=== PATIENT | female | born 2000 | race Two or more races ===

== ENCOUNTER → 2025-09-09 | Outpatient (CLI) | payer MEDICAID ==
[2025-09-09 17:26] LABS: PLATELET COUNT, AUTOMATED 262 10^3/uL (150-450)
[2025-09-09 17:56] LABS: HIV 1&2 SCREEN NEGATIVE (NEGATIVE)
[2025-09-09 18:04] LABS: HEPATITIS C VIRUS ABY INDEX < 0.02 INDEX (<0.8)
[2025-09-09 18:32] LABS: Trichomonas vaginalis (AMP) NOT DETECTED (NEGATIVE)
[2025-09-09 18:55] LABS: GC DNA AMPLIFICATION NEGATIVE (NEGATIVE)
== END ==
LOC: M PLALAB 14:01 → EEVIPCON 14:01
PROVIDERS: ATTEND Advanced Practice Midwife
DX: Z34.01 Encounter for supervision of normal first pregnancy, first trimester (principal)

== ENCOUNTER 2025-10-16 05:13 | Emergency (ER) | payer MEDICAID, OTHER ==
[~2025-10-16] VITALS: Ht 149.9 cm; Wt 58.2 kg
[2025-10-16 05:44] LABS: BASO # 0.0 10^3/uL (0.0-0.2); BASO % 0.2 % (0.0-1.0); EOS # 0.1 10^3/uL (0.0-0.5); EOS % 0.6 % (0.0-3.0); LYMPH # 1.5 10^3/uL (1.5-5.0); LYMPH % 13.7 % (24.0-44.0); MONO # 0.4 10^3/uL (0.0-0.8); MONO % 4.1 % (2.0-8.0); NEUTROPHILS # 8.6 10^3/uL (1.5-8.5); NEUTROPHILS % 81.0 % (36.0-66.0); PLATELET COUNT, AUTOMATED 209 10^3/uL (150-450)
[2025-10-16 06:19] LABS: KETONE, URINE AUTO RFX NEGATIVE (NEGATIVE); NITRITE, URINE AUTO RFX NEGATIVE (NEGATIVE); RBC, URINE AUTO RFX 3 /HPF (0-3); SQUAM EPITHELIAL CELL UR AURFX 6 /HPF (0-6)
[2025-10-16] MEDS: ONDANSETRON 4MG/2ML VIAL IV ONE (06:20)
[2025-10-16 06:21] LABS: ALT/SGPT 12 U/L (7.0-40); AST/SGOT 15 U/L (<34); CALCIUM LEVEL 8.6 MG/DL (8.5-10.1); CARBON DIOXIDE LEVEL 24 MMOL/L (20-31); CHLORIDE LEVEL 104 MMOL/L (98-107); CREATININE FOR GFR 0.41 MG/DL (0.55-1.30); GLOMERULAR FILTRATION RATE > 90.0 (>60); POTASSIUM SERUM 3.6 MMOL/L (3.5-5.1); SODIUM LEVEL 137 MMOL/L (136-145)
[2025-10-16 06:21] LABS: LEUKOCYTE ESTERASE UR AUTO RFX 2+ (NEGATIVE); WBC, URINE AUTO RFX 54 /HPF (0-3)
[2025-10-16] MEDS: MORPHINE 4 MG/ML 1 ML VIAL IV PRN (06:26)
[2025-10-16 06:33] LABS: HCG, SERUM QUANTITATIVE 57911.0 MIU/ML (<4.2)
[2025-10-16] MEDS: NS (Normal Saline) 0.9% 1,000 ML IV ONE ×2 (08:31→09:27)
[2025-10-16] MEDS ORDERED: MULTTAB20 PO (08:57)
[2025-10-16] MEDS ORDERED: HOME MED LIST COMPLETE! XX SCH (09:00)
[2025-10-16 14:57] VITALS: TEMP 97.9
[2025-10-16] MEDS: ACETAMINOPHEN *IV* 1,000 MG in IV 1 EA IV ONE (17:44)
[2025-10-16 18:30] VITALS: BP 130/57; O2SAT 98
[2025-10-16] MEDS ORDERED: CEPH500C PO (18:57)
[2025-10-16] MEDS ORDERED: SIME1CAP4 PO (18:57)
== END 2025-10-16 19:12 | disposition home or self-care (01) ==
LOC: M ED 05:13
DX: N39.0 Urinary tract infection, site not specified (principal); J06.9 Acute upper respiratory infection, unspecified; R10.9 Unspecified abdominal pain; K82.8 Other specified diseases of gallbladder; Z3A.15 15 weeks gestation of pregnancy; Z79.2 Long term (current) use of antibiotics; Z79.810 Long term (current) use of selective estrogen receptor modulators (SERMs)
CPT/HCPCS: 72195; 74181; 76705; 76811; 80048; 80076; 81001; 83690; 84702; 85025; 86850; 86900; 86901; 87088; 87186; 87486; 87581; 87633; 87798; 93041; 96361; 96365; 96375; 99285; J0134; J2405

== ENCOUNTER → 2025-10-20 | Outpatient (REF) | payer MEDICAID, OTHER ==
[~2025-10-20] MED LIST: CEPH500C PO; MULTTAB20 PO; SIME1CAP4 PO
== END ==
LOC: M SFHCWAGY 17:04
PROVIDERS: ATTEND Obstetrics & Gynecology
DX: R82.90 Unspecified abnormal findings in urine (principal)